=== PATIENT | female | born 1980 | race Caucasian/White ===

== ENCOUNTER 2023-06-19 22:47 | Inpatient (IN) | payer SELFPAY ==
[2023-06-19] MEDS ORDERED: Dextrose 5%-Lactated Ringers 1,000 ML IV SCH (22:56)
[2023-06-19] MEDS ORDERED: diphenhydrAMINE 50 MG/ML SDV IVPUSH PRN (23:11)
[2023-06-19] MEDS ORDERED: Ondansetron 4 MG/2 ML SDV IVPUSH PRN (23:13)
[2023-06-19] MEDS: HYDROmorphone 1 MG/ML Syringe IVPUSH PRN (23:15)
[2023-06-20] MEDS: HYDROmorphone 1 MG/ML Syringe IVPUSH PRN (05:07)
[2023-06-20] MEDS ORDERED: Lidocaine 1% with EPINEPHrine 1:100,000 50 ML MDV ONE ×2 (08:00→09:47)
[2023-06-20] MEDS ORDERED: Ketamine 500 MG/5 ML MDV IV SCH ×3 (08:00→13:00)
[2023-06-20] MEDS ORDERED: Bupivacaine 0.5% 50 ML MDV ONE ×2 (08:00→09:47)
[2023-06-20] MEDS ORDERED: Meropenem 500 MG SDV ONE ×3 (08:00→16:22)
[2023-06-20] MEDS ORDERED: Naloxone 0.4 MG/ML SDV IV PRN (08:40)
[2023-06-20] MEDS: fentaNYL/Normal Saline 600 MCG/30 ML PCA Vial IV PRN (09:56)
[2023-06-20] MEDS ORDERED: fentaNYL 250 MCG/5 ML SDV ONE (10:54)
[2023-06-20] MEDS ORDERED: Succinylcholine 200 MG/10 ML MDV ONE (10:57)
[2023-06-20] MEDS ORDERED: Propofol 200 MG/20 ML SDV ONE (10:57)
[2023-06-20] MEDS ORDERED: Ondansetron 4 MG/2 ML SDV ONE (10:57)
[2023-06-20] MEDS ORDERED: Neostigmine Methylsulfate 1 MG/ML 5 ML Syringe ONE (10:57)
[2023-06-20] MEDS ORDERED: Rocuronium 50 MG/5 ML Vial ONE (10:57)
[2023-06-20] MEDS ORDERED: Dexamethasone 4 MG/ML SDV ONE (10:57)
[2023-06-20] MEDS ORDERED: Glycopyrrolate 0.2 MG/ML 5 ML MDV ONE (10:57)
[2023-06-20] MEDS ORDERED: Ketamine 15 MG in Sodium Chloride 0.9% 19.85 ML IV SCH (13:00)
[2023-06-20] MEDS ORDERED: cefOXitin 2 GM in Sodium Chloride 0.9% 50 ML IV ONE (13:00)
[2023-06-20] MEDS ORDERED: Ropivacaine 35 ML, dexAMETHasone 8 MG, EPINEPHrine 0.4 MG, Sodium Chloride 0.9% 42.6 ML NERVRT SCH ×4 (13:00)
[2023-06-20] MEDS ORDERED: Sodium Chloride 0.9% 10 ML ONE (15:56)
[2023-06-20] MEDS ORDERED: cefOXitin 2 GM Vial ONE (15:56)
[2023-06-20] MEDS ORDERED: Lactated Ringers 1,000 ML ONE (16:10)
[2023-06-20] MEDS ORDERED: Linezolid 600 MG/300 ML Premix Bag IRR ONE (16:48)
[2023-06-20] MEDS ORDERED: fentaNYL 100 MCG/2 ML SDV ONE (17:12)
[2023-06-20] MEDS ORDERED: Cyclobenzaprine 10 MG Tab PO PRN (19:53)
[2023-06-20] MEDS ORDERED: Labetalol 100 MG/20 ML MDV IVPUSH PRN (19:53)
[2023-06-20] MEDS ORDERED: Metoclopramide 10 MG/2 ML SDV IV PRN (19:53)
[2023-06-20] MEDS ORDERED: Pantoprazole 40 MG Vial IVPUSH SCH (20:00)
[2023-06-20] MEDS: Acetaminophen 500 MG Tab PO SCH (21:06)
[2023-06-20] MEDS: Heparin Sodium 5,000 Units/ML Vial SUBCUT SCH (21:07)
[2023-06-20] MEDS: cefOXitin 2 GM in Sodium Chloride 0.9% 50 ML IV SCH (21:07)
[2023-06-20] MEDS: Dextrose 5%-Lactated Ringers 1,000 ML IV SCH (21:10)
[2023-06-20] MEDS ORDERED: Acetaminophen 500 MG Tab PO PRN (21:14)
[2023-06-20] MEDS ORDERED: cefOXitin 1 GM Vial IV SCH (22:00)
[2023-06-20] MEDS ORDERED: diphenhydrAMINE 50 MG/ML SDV IVPUSH PRN (22:00)
[2023-06-21] MEDS: Dextrose 5%-Lactated Ringers 1,000 ML IV SCH (02:52)
[2023-06-21] MEDS: cefOXitin 2 GM in Sodium Chloride 0.9% 50 ML IV SCH ×4 (03:36→22:11)
[2023-06-21] MEDS: Acetaminophen 500 MG Tab PO SCH ×3 (03:38→19:58)
[2023-06-21] MEDS ORDERED: Iopamidol 612 MG/ML 30 ML SDV PO STA (04:36)
[2023-06-21 04:58] LABS: BASOPHILS PERCENT AUTO 0.1 % (0.1-1.3); HEMATOCRIT 34.9 % (34.3-46.0); HEMOGLOBIN 11.4 g/dL (11.2-15.5); IMMATURE GRAN ABSOLUTE AUTO 0.07 K/uL (0.00-0.23); IMMATURE GRAN PERCENT AUTO 0.4 % (0.0-0.7); LYMPHOCYTES ABSOLUTE AUTO 0.47 K/uL (0.8-3.3); LYMPHOCYTES PERCENT AUTO 2.7 % (11.4-47.7); MEAN CORPUSCULAR HGB CONC 32.7 g/dL (31.6-35.5); MONOCYTES ABSOLUTE AUTO 0.88 K/uL (0.20-0.90); MONOCYTES PERCENT AUTO 5.1 % (3.3-12.6); NEUTROPHILS ABSOLUTE AUTO 15.84 K/uL (1.0-7.6); NEUTROPHILS PERCENT AUTO 91.7 % (40.0-78.1); PLATELET COUNT,PLT 315 K/uL (130-375); RED BLOOD CELL COUNT 3.56 M/uL (3.77-5.24); WHITE BLOOD CELL COUNT,WBC 17.3 K/uL (3.2-11.0)
[2023-06-21 05:20] LABS: BASOPHILS ABSOLUTE AUTO 0.02 K/uL (0.00-0.10)
[2023-06-21 05:24] LABS: A/G RATIO 0.9 (1.2-2.2); ALANINE AMINOTRANSFERASE,ALT 279 U/L (12-78); ALBUMIN 2.7 g/dL (3.4-5.0); ALKALINE PHOSPHATASE 283 U/L (46-116); ANION GAP 9.2 mmol/L (5.0-14.0); ASPARTATE AMNIOTRANSFERASE,AST 145 U/L (15-37); BILIRUBIN TOTAL 0.7 mg/dL (0.2-1.0); BLOOD UREA NITROGEN,BUN 5 mg/dL (7-18); CALCIUM 8.5 mg/dL (8.5-10.1); CARBON DIOXIDE,CO2 27 mmol/L (21-32); CHLORIDE,CL 105 mmol/L (100-108); EST CRCL DRUG DOSING (CG) 56.78 mL/min; ESTIMATED GFR 71 mL/min (>60); GLUCOSE RANDOM 156 mg/dL (74-106); MAGNESIUM 1.7 mg/dL (1.8-2.4); PHOSPHORUS 3.8 mg/dL (2.5-4.9); POTASSIUM,K 4.7 mmol/L (3.6-5.2); PROTEIN TOTAL,TP 5.6 g/dL (6.4-8.2); SODIUM,NA 141 mmol/L (140-148)
[2023-06-21] MEDS ORDERED: Ondansetron 4 MG Tab.DIS PO PRN (07:56)
[2023-06-21] MEDS ORDERED: Dextrose 5%-Lactated Ringers 1,000 ML IV SCH (08:00)
[2023-06-21] MEDS: Celecoxib 200 MG Cap PO SCH ×2 (08:39→20:00)
[2023-06-21] MEDS: Cyclobenzaprine 10 MG Tab PO SCH ×2 (08:39→16:36)
[2023-06-21] MEDS: Heparin Sodium 5,000 Units/ML Vial SUBCUT SCH ×2 (08:42→20:02)
[2023-06-21] MEDS: Magnesium Sulfate/Water 2 GM in Premix Bag 1 BAG IV SCH ×3 (08:42→20:12)
[2023-06-21] MEDS ORDERED: SCOPOLAMINE PATCH CHECK TOP SCH (09:00)
[2023-06-21] MEDS: MVI, Adult with Vitamin K 10 ML, Thiamine 200 MG, Chromium/Copper/Mang/Selen/Zn 1 ML in... IV SCH ×4 (10:56)
[2023-06-21] MEDS: fentaNYL/Normal Saline 600 MCG/30 ML PCA Vial IV PRN (12:39)
[2023-06-21] MEDS: hydrOXYzine HCL 100 MG/2 ML SDV IM PRN (19:57)
[2023-06-21] MEDS: Pantoprazole 40 MG Vial IVPUSH SCH (20:04)
[2023-06-22] MEDS: Cyclobenzaprine 10 MG Tab PO SCH ×3 (01:34→17:01)
[2023-06-22] MEDS: Magnesium Sulfate/Water 2 GM in Premix Bag 1 BAG IV SCH ×4 (02:37→20:54)
[2023-06-22] MEDS: cefOXitin 2 GM in Sodium Chloride 0.9% 50 ML IV SCH ×3 (04:21→17:00)
[2023-06-22] MEDS: Acetaminophen 500 MG Tab PO SCH ×3 (04:21→20:49)
[2023-06-22 04:42] LABS: HEMATOCRIT 30.9 % (34.3-46.0); MEAN CORPUSCULAR HEMOGLOBIN 31.4 pg (31.6-35.5); MEAN CORPUSCULAR HGB CONC 32.4 g/dL (31.6-35.5); MEAN CORPUSCULAR VOLUME 97.2 fL (81.4-99.0); RED BLOOD CELL COUNT 3.18 M/uL (3.77-5.24); WHITE BLOOD CELL COUNT,WBC 10.4 K/uL (3.2-11.0)
[2023-06-22 05:04] LABS: A/G RATIO 0.8 (1.2-2.2); ALANINE AMINOTRANSFERASE,ALT 169 U/L (12-78); ALBUMIN 2.4 g/dL (3.4-5.0); ALKALINE PHOSPHATASE 233 U/L (46-116); ANION GAP 7.8 mmol/L (5.0-14.0); ASPARTATE AMNIOTRANSFERASE,AST 50 U/L (15-37); BILIRUBIN TOTAL 0.4 mg/dL (0.2-1.0); BLOOD UREA NITROGEN,BUN 6 mg/dL (7-18); CALCIUM 7.9 mg/dL (8.5-10.1); CARBON DIOXIDE,CO2 27 mmol/L (21-32); CHLORIDE,CL 107 mmol/L (100-108); CREATININE 0.6 mg/dL (0.6-1.0); EST CRCL DRUG DOSING (CG) 93.81 mL/min; ESTIMATED GFR 113 mL/min (>60); GLUCOSE RANDOM 101 mg/dL (74-106); PHOSPHORUS 2.5 mg/dL (2.5-4.9); POTASSIUM,K 3.6 mmol/L (3.6-5.2); PROTEIN TOTAL,TP 5.3 g/dL (6.4-8.2); SODIUM,NA 142 mmol/L (140-148)
[2023-06-22] MEDS ORDERED: Meropenem 500 MG SDV ONE (06:44)
[2023-06-22] MEDS ORDERED: Lidocaine 1% with EPINEPHrine 1:100,000 50 ML MDV ONE (06:44)
[2023-06-22] MEDS ORDERED: Bupivacaine 0.5% 50 ML MDV ONE (06:44)
[2023-06-22] MEDS ORDERED: fentaNYL 100 MCG/2 ML SDV ONE (07:00)
[2023-06-22] MEDS ORDERED: Midazolam 1 MG/ML 2 ML SDV ONE (07:00)
[2023-06-22] MEDS ORDERED: Propofol 200 MG/20 ML SDV ONE ×2 (07:00→07:32)
[2023-06-22] MEDS ORDERED: Ropivacaine 35 ML, dexAMETHasone 8 MG, EPINEPHrine 0.4 MG, Sodium Chloride 0.9% 42.6 ML NERVRT SCH ×4 (07:15)
[2023-06-22] MEDS ORDERED: Lactated Ringers 1,000 ML ONE (07:23)
[2023-06-22] MEDS: Heparin Sodium 5,000 Units/ML Vial SUBCUT SCH ×2 (08:55→20:51)
[2023-06-22] MEDS: Celecoxib 200 MG Cap PO SCH ×2 (08:55→20:49)
[2023-06-22] MEDS ORDERED: Cyanocobalamin (Vitamin B12) 1,000 MCG/ML SDV IM ONE (09:00)
[2023-06-22] MEDS: MVI, Adult with Vitamin K 10 ML, Thiamine 200 MG, Chromium/Copper/Mang/Selen/Zn 1 ML in... IV SCH ×4 (10:20)
[2023-06-22] MEDS: Bisacodyl 5 MG Tab PO SCH ×2 (12:02→20:49)
[2023-06-22] MEDS: Docusate Sodium 100 MG Cap PO SCH ×2 (12:03→20:49)
[2023-06-22] MEDS: Pantoprazole 40 MG Vial IVPUSH SCH (22:21)
[2023-06-23] MEDS: Cyclobenzaprine 10 MG Tab PO SCH ×3 (01:06→16:49)
[2023-06-23] MEDS: Magnesium Sulfate/Water 2 GM in Premix Bag 1 BAG IV SCH (03:55)
[2023-06-23] MEDS: Acetaminophen 500 MG Tab PO SCH ×3 (05:24→21:17)
[2023-06-23] MEDS: Docusate Sodium 100 MG Cap PO SCH ×2 (08:32→21:17)
[2023-06-23] MEDS: Lidocaine 4% 1 each Patch TOP SCH (08:32)
[2023-06-23] MEDS: Celecoxib 200 MG Cap PO SCH ×2 (08:32→21:17)
[2023-06-23] MEDS: Bisacodyl 5 MG Tab PO SCH ×2 (08:32→21:17)
[2023-06-23] MEDS: Heparin Sodium 5,000 Units/ML Vial SUBCUT SCH ×2 (08:33→21:17)
[2023-06-23] MEDS: HYDROmorphone 2 MG Tab PO PRN ×3 (08:41→21:16)
[2023-06-23] MEDS: hydrOXYzine HCL 100 MG/2 ML SDV IM PRN (19:23)
[2023-06-23] MEDS: Pantoprazole 40 MG Vial IVPUSH SCH (21:17)
[2023-06-24] MEDS: Cyclobenzaprine 10 MG Tab PO SCH ×2 (00:50→09:11)
[2023-06-24] MEDS: Acetaminophen 500 MG Tab PO SCH ×2 (04:11→11:22)
[2023-06-24] MEDS: HYDROmorphone 2 MG Tab PO PRN ×2 (04:12→11:23)
[2023-06-24 05:51] VITALS: BP 111/53; PULSE 74
[2023-06-24] MEDS: Lidocaine 4% 1 each Patch TOP SCH (09:09)
[2023-06-24] MEDS: Celecoxib 200 MG Cap PO SCH (09:09)
[2023-06-24] MEDS: Docusate Sodium 100 MG Cap PO SCH (09:10)
[2023-06-24] MEDS: Bisacodyl 5 MG Tab PO SCH (09:10)
[2023-06-24] MEDS: Heparin Sodium 5,000 Units/ML Vial SUBCUT SCH (09:11)
== END 2023-06-24 12:00 | disposition home or self-care (01) | DRG 326 ==
LOC: JP.ICU 22:47
PROVIDERS: ADMIT Surgery; ATTEND Surgery
PROC: 0DB80ZZ Excision of Small Intestine, Open Approach (ICD-10-PCS; principal; 2023-06-19)
PROC: 0DB60ZZ Excision of Stomach, Open Approach (ICD-10-PCS; principal; 2023-06-19)
PROC: 0WQF0ZZ Repair Abdominal Wall, Open Approach (ICD-10-PCS; 2023-06-19)
DX: K26.9 Duodenal ulcer, unspecified as acute or chronic, without hemorrhage or perforation (principal); A41.9 Sepsis, unspecified organism; K56.600 Partial intestinal obstruction, unspecified as to cause; L02.818 Cutaneous abscess of other sites; Z20.822 Contact with and (suspected) exposure to COVID-19; F41.9 Anxiety disorder, unspecified; F32.A Depression, unspecified; K86.89 Other specified diseases of pancreas; G25.81 Restless legs syndrome; G47.33 Obstructive sleep apnea (adult) (pediatric); Z88.8 Allergy status to other drugs, medicaments and biological substances; Z88.6 Allergy status to analgesic agent; Z88.0 Allergy status to penicillin; Z88.5 Allergy status to narcotic agent; Z88.2 Allergy status to sulfonamides; Z90.710 Acquired absence of both cervix and uterus; Z90.49 Acquired absence of other specified parts of digestive tract; Z98.890 Other specified postprocedural states; Z79.899 Other long term (current) drug therapy
CPT/HCPCS: 36415; 74240; 74240-26; 80053; 83735; 84100; 85025; 85027; 87070; 87075; 87205; 88307; A9270-GY; C9113; J0171; J0330; J0694; J1100; J1170; J1200; J1644; J2020; J2185; J2250; J2405; J2704; J2710; J2795; J3010; J3410; J3411; J3420; J3475; J3490; J7120; J7121; Q9967; U0002

== ENCOUNTER 2025-03-26 17:14 | Inpatient (IN) | payer OTHER ==
[2025-03-26] MEDS ORDERED: Ondansetron 4 MG/2 ML SDV IV PRN (19:20)
[2025-03-26] MEDS: Cyanocobalamin (Vitamin B12) 1,000 MCG/ML SDV IM ONE (20:18)
[2025-03-26] MEDS: Thiamine 100 MG in Sodium Chloride 0.9% 100 ML IV ONE (20:18)
[2025-03-26] MEDS: Pantoprazole 40 MG Vial IVPUSH SCH (20:19)
[2025-03-26] MEDS: Ketorolac 15 MG/ML SDV IVPUSH SCH (20:21)
[2025-03-26] MEDS: NS + KCl 20mEq/L 1,000 ML IV SCH (20:25)
[2025-03-27 07:32] LABS: BASOPHILS ABSOLUTE AUTO 0.06 K/uL (0.00-0.10); BASOPHILS PERCENT AUTO 1.4 % (0.1-1.3); EOSINOPHILS ABSOLUTE AUTO 0.13 K/uL (0.00-0.40); HEMATOCRIT 32.7 % (34.3-46.0); HEMOGLOBIN 10.2 g/dL (11.2-15.5); IMMATURE GRAN PERCENT AUTO 0.2 % (0.0-0.7); LYMPHOCYTES ABSOLUTE AUTO 1.25 K/uL (0.8-3.3); LYMPHOCYTES PERCENT AUTO 28.5 % (11.4-47.7); MEAN CORPUSCULAR HEMOGLOBIN 27.9 pg (31.6-35.5); MEAN CORPUSCULAR HGB CONC 31.2 g/dL (31.6-35.5); MEAN CORPUSCULAR VOLUME 89.6 fL (81.4-99.0); MONOCYTES PERCENT AUTO 13.7 % (3.3-12.6); NEUTROPHILS ABSOLUTE AUTO 2.33 K/uL (1.0-7.6); NEUTROPHILS PERCENT AUTO 53.2 % (40.0-78.1); PLATELET COUNT,PLT 248 K/uL (130-375); RED BLOOD CELL COUNT 3.65 M/uL (3.77-5.24); WHITE BLOOD CELL COUNT,WBC 4.4 K/uL (3.2-11.0)
[2025-03-27 07:36] LABS: IMMATURE GRAN ABSOLUTE AUTO 0.01 K/uL (0.00-0.23)
[2025-03-27 07:46] LABS: ANION GAP 5.8 mmol/L (5.0-14.0); CALCIUM 8.7 mg/dL (8.5-10.1); CREATININE 0.7 mg/dL (0.6-1.0); EST CRCL DRUG DOSING (CG) 79.42 mL/min; POTASSIUM,K 4.1 mmol/L (3.6-5.2)
[2025-03-27] MEDS: Diatrizoate Meglumine/Diatrizoate Sodium 37% 120 ML Bottle NGTUBE SCH (13:27)
[2025-03-27] MEDS: Venlafaxine 75 MG Cap.ER PO SCH (21:09)
[2025-03-28 05:53] VITALS: BP 127/62; PULSE 74
== END 2025-03-28 10:46 | disposition home or self-care (01) | DRG 390 ==
LOC: JP.MS 18:30 → OBSVTOIN 19:18 → JP.MS 19:18
PROVIDERS: ADMIT Surgery; ATTEND Surgery
DX: K56.609 Unspecified intestinal obstruction, unspecified as to partial versus complete obstruction (principal); F41.9 Anxiety disorder, unspecified; E87.6 Hypokalemia; F32.A Depression, unspecified; Z98.84 Bariatric surgery status; Z88.6 Allergy status to analgesic agent; Z88.1 Allergy status to other antibiotic agents; Z88.5 Allergy status to narcotic agent; Z88.8 Allergy status to other drugs, medicaments and biological substances; Z88.0 Allergy status to penicillin; Z88.2 Allergy status to sulfonamides; Z79.899 Other long term (current) drug therapy; Z90.710 Acquired absence of both cervix and uterus; Z90.49 Acquired absence of other specified parts of digestive tract; Z93.6 Other artificial openings of urinary tract status; Z98.0 Intestinal bypass and anastomosis status
CPT/HCPCS: 36415; 74018; 80048; 85025; A9270-GY; J1885; J2470; J3411; J3420; J3480; Q9963